=== PATIENT | male | born 1995 | race Native Hawaiian/Other Pacific Islander ===

== ENCOUNTER 2016-12-15 02:43 | Emergency (ER) | payer OTHER ==
--- NOTE | 2016-12-15 08:44 | RAD ---
Exam: Two-view chest COMPARISON: 04/03/2011 INDICATION: Cough for 3 weeks. FINDINGS: PA and lateral views of the chest were obtained. Cardiac silhouette is within normal limits and stable. Lungs are well-inflated. There is no focal airspace disease or pleural effusion. Focal convex appearance of the distal sternum is again appreciated. Bones of the chest wall otherwise unremarkable. Impression: No acute pulmonary process.
== END 2016-12-15 03:25 | disposition home or self-care (01) ==
LOC: ED 02:43
DX: R05 Cough (principal); J45.909 Unspecified asthma, uncomplicated; F17.220 Nicotine dependence, chewing tobacco, uncomplicated